=== PATIENT | male | born 1995 | race Caucasian/White ===

== ENCOUNTER 2025-01-19 16:13 | Emergency (ER) | payer OTHER ==
[~2025-01-19 16:13] MED LIST: Iopamidol-370 76% 500 ML MDV (1 ML CHARGE) ONE
[2025-01-19 16:50] LABS: Bacteria/HPF None Seen HPF (None Seen); CAUTI Indications for Culture Dysuria,urgency,freq; Glucose, Urine (Dipstick) Normal (Negative); Leukocyte Negative Leu/uL (Negative); Protein, Urine (Dipstick) Negative (Neg-Trace); RBC/HPF 0-3 HPF (0-3); Specific Gravity, Urine 1.021 (1.002-1.036)
[2025-01-19 16:52] LABS: Urine Culture Reflex No No
[2025-01-19 17:20] LABS: #Basophils Less than 0.03 10x3/uL (0.0-0.2); #Eosinophils 0.15 10x3/uL (0.0-0.7); #Monocytes 0.55 10x3/uL (0.11-0.59); #Neutrophils 2.39 10x3/uL (1.40-6.50); %Basophils 0.4 % (0.0-1.0); %Eosinophils 3.2 % (0.0-10.0); %Lymphocytes 33.0 % (21.0-51.0); %Monocytes 11.8 % (0.0-10.0); %Neutrophils 51.4 % (42.0-75.0); Hematocrit 44.5 % (42.0-52.0); Hemoglobin 15.6 g/dL (14.0-18.0); Mean Corpuscular Hemoglobin 31.3 pg (27.0-31.0); Mean Corpuscular Volume 89.4 fL (78.0-98.0); Platelet Count 181 10x3/uL (130-400); Red Blood Cell (RBC) Count 4.98 mill/uL (4.70-6.10); White Blood Cell (WBC) Count 4.66 10x3/uL (4.8-10.8)
[2025-01-19 17:37] LABS: ALT (SGPT) 42 U/L (Less than 45); AST (SGOT) 33 U/L (11-34); Albumin 4.5 g/dL (3.1-4.5); Alkaline Phosphatase 104 U/L (40-110); Anion Gap 12 mmol/L (10-20); BUN (Urea Nitrogen) 11 mg/dL (8.9-20.6); Bilirubin, Total 0.5 mg/dL (0.3-1.2); Calc. Creatinine Clearance 0 mL/min (70-130); Calcium 8.8 mg/dL (7.8-10.44); Carbon Dioxide 21 mmol/L (22-29); Chloride 113 mmol/L (98-107); Globulin 2.9 g/dL (2.4-3.5); Glucose 119 mg/dL (70-105); Potassium 3.9 mmol/L (3.5-5.1); Sodium 142 mmol/L (136-145)
[2025-01-19] MEDS ORDERED: diphenhydrAMINE 50 MG/ML VIAL ONE (17:46)
[2025-01-19] MEDS ORDERED: Ketorolac Tromethamine 30 MG (1 mL) VIAL ONE (17:46)
[2025-01-19] MEDS ORDERED: Lactulose 20 GM (30 mL) UDCUP ONE (19:57)
== END 2025-01-19 20:10 | disposition home or self-care (01) ==
LOC: ERS 16:13
DX: R51.9 Headache, unspecified (principal); K59.00 Constipation, unspecified; K62.5 Hemorrhage of anus and rectum; K64.9 Unspecified hemorrhoids; Z86.718 Personal history of other venous thrombosis and embolism
CPT/HCPCS: 36415; 70450; 71045; 71275; 74177; 80053; 81001; 82274; 84484; 85025; 93005; 96374; 96375; J1200; J1885; J2919; Q9967